=== PATIENT | female | born 1950 | race African-American/Black ===

== ENCOUNTER 2021-10-26 01:07 | Emergency (ER) | payer SELFPAY ==
[~2021-10-26] VITALS: Ht 167.6 cm; Wt 69.0 kg
[2021-10-26 06:18] VITALS: BP 131/61
== END 2021-10-26 07:30 | disposition home or self-care (01) ==
LOC: ER 01:07
DX: M25.571 Pain in right ankle and joints of right foot (principal)
CPT/HCPCS: 99285